=== PATIENT | female | born 1980 | race Caucasian/White ===

== ENCOUNTER 2017-12-09 18:38 | Emergency (ER) | payer OTHER ==
[~2017-12-09] VITALS: Ht 175.3 cm; Wt 117.0 kg
[2017-12-09 18:40] VITALS: Ht 175.3 cm; Wt 117.0 kg
[2017-12-09 19:42] LABS: BASOPHIL % 0.7 % (0-2); PLATELET COUNT 343 x10^3mcL (130-400); RED CELL DISTRIBUTION WIDTH 14.5 % (11.5-14.5)
[2017-12-09 19:49] LABS: CALCIUM 8.6 mg/dL (8.5-10.1); CARBON DIOXIDE 26.9 mmol/L (21-32); CHLORIDE SERUM 105 mmol/L (98-107); CREATININE SERUM 0.8 mg/dL (0.6-1.0); GFR1 > 60 mL/min; GLUCOSE SERUM 89 mg/dL (74-106); POTASSIUM SERUM 3.9 mmol/L (3.5-5.1); SODIUM SERUM 142 mmol/L (136-145)
[2017-12-09 19:56] LABS: ALBUMIN 3.7 g/dL (3.4-5.0); ALKALINE PHOSPHATASE 95 U/L (46-116); ALT/SGPT 21 U/L (14-59); AST/SGOT 18 U/L (15-37); BILIRUBIN TOTAL 0.3 mg/dL (0.20-1.00); TOTAL PROTEIN, SERUM 7.5 g/dL (6.4-8.2)
[2017-12-09 22:39] VITALS: BP 127/79
== END 2017-12-09 22:39 | disposition home or self-care (01) ==
LOC: ED 18:38
PROVIDERS: Specialist
DX: N93.8 Other specified abnormal uterine and vaginal bleeding (principal)
CPT/HCPCS: J7030; Q0092

== ENCOUNTER 2018-01-12 07:46 | Emergency (ER) | payer OTHER ==
[~2018-01-12] VITALS: Ht 175.3 cm; Wt 112.9 kg
[2018-01-12 07:50] VITALS: Ht 175.3 cm; Wt 112.9 kg
[2018-01-12 08:51] LABS: T4(THYROXINE) 7.9 ug/dL (4.7-13.3)
[2018-01-12 08:54] LABS: BASOPHIL % 1.2 % (0-2); PLATELET COUNT 346 x10^3mcL (130-400); RED CELL DISTRIBUTION WIDTH 14.2 % (11.5-14.5)
[2018-01-12 10:22] VITALS: BP 117/66
== END 2018-01-12 10:41 | disposition home or self-care (01) ==
LOC: ED 07:46
PROVIDERS: Emergency Medicine
DX: N93.8 Other specified abnormal uterine and vaginal bleeding (principal); E78.00 Pure hypercholesterolemia, unspecified
CPT/HCPCS: J7030

== ENCOUNTER 2018-07-24 04:41 | Emergency (ER) | payer OTHER ==
[~2018-07-24] VITALS: Ht 175.3 cm; Wt 105.7 kg
[2018-07-24 04:47] VITALS: Ht 175.3 cm; Wt 105.7 kg
[2018-07-24 06:35] LABS: BASOPHIL % 0.8 % (0-2); PLATELET COUNT 386 x10^3mcL (130-400); RED CELL DISTRIBUTION WIDTH 14.1 % (11.5-14.5)
[2018-07-24 07:02] LABS: ALBUMIN 3.4 g/dL (3.4-5.0); CREATININE SERUM 0.7 mg/dL (0.6-1.0); GFR1 > 60 mL/min; SODIUM SERUM 138 mmol/L (136-145); T3 TOTAL 1.54 ng/mL
[2018-07-24 07:12] LABS: FREE T4 0.96 ng/dL (0.76-1.46); T4(THYROXINE) 9.3 ug/dL (4.7-13.3)
[2018-07-24 07:29] VITALS: BP 106/69
[2018-07-24 07:47] LABS: ALKALINE PHOSPHATASE 77 U/L (46-116); ALT/SGPT 29 U/L (14-59); AST/SGOT 19 U/L (15-37); BILIRUBIN TOTAL 0.2 mg/dL (0.20-1.00); CALCIUM 8.5 mg/dL (8.5-10.1); CARBON DIOXIDE 28.8 mmol/L (21-32); CHLORIDE SERUM 102 mmol/L (98-107); GLUCOSE SERUM 90 mg/dL (74-106); TOTAL PROTEIN, SERUM 7.4 g/dL (6.4-8.2)
== END 2018-07-24 08:17 | disposition home or self-care (01) ==
LOC: ED 04:41
PROVIDERS: Emergency Medicine
DX: N93.8 Other specified abnormal uterine and vaginal bleeding (principal)
CPT/HCPCS: 36415; 84439; J1885